=== PATIENT | female | born 1955 | race Caucasian/White ===

== ENCOUNTER → 2019-10-17 | Outpatient (CLI) | payer MEDICARE, SELFPAY ==
[2019-10-17 13:06] VITALS: BMI 39.6
== END | disposition home or self-care (01) ==
LOC: LABSPEC 16:00
PROVIDERS: PCP Internal Medicine; Referring Provider Nurse Practitioner Women's Health; Visit Provider Nurse Practitioner Women's Health
DX: N76.4 Abscess of vulva (principal)
CPT/HCPCS: 87070; 87077; 87186; 87205

== ENCOUNTER → 2021-11-04 | Outpatient (CLI) | payer MEDICARE, SELFPAY ==
[2021-11-08 11:33] LABS: HPV APTIMA, High Risk Negative (Negative)
== END | disposition home or self-care (01) ==
LOC: LABSPEC 10:03
PROVIDERS: PCP Internal Medicine; Visit Provider Obstetrics & Gynecology
DX: N39.46 Mixed incontinence (principal); Z12.4 Encounter for screening for malignant neoplasm of cervix
CPT/HCPCS: 87086; 87088; 87624; 88175; G0145

== ENCOUNTER → 2022-02-25 | Outpatient (CLI) | payer MEDICARE, SELFPAY ==
--- NOTE | 2022-02-25 10:08 | BI_ITS ---
MAMMOGRAPHY - BILATERAL SCREENING REASON FOR EXAM: Female, 66 years old. Routine annual screening examination. PERTINENT HISTORY: Non-contributory. TECHNIQUE: Digital bilateral breast lj (3D mammographic acquisition) in the CC and MLO projections. 2-D mediolateral oblique (MLO) and craniocaudad (CC) views of both breasts were obtained. CAD: Full Field Digital Mammography with Computer Added Detection was performed. COMPARISON: Comparison is made with prior outside examination of 12/16/2020. FINDINGS: Breast Composition: There are scattered areas of fibroglandular density. There are no dominant masses or suspicious calcifications. Stable small benign-appearing bilateral axillary lymph nodes. No other significant abnormalities are identified. There has been no significant change since the prior study. BI/SCRN MAMM (CAD)W/LJ BILAT IMPRESSION: Stable bilateral screening mammogram. Yearly follow-up mammogram recommended. (A) ASSESSMENT CATEGORY: BIRADS Category 2: Benign. A letter regarding these results will be sent to the patient by the facility within 30 days. Approximately 10% of breast cancers are not detected by mammography. A normal mammogram should not delay biopsy of a clinically suspicious abnormality. [id number] Electronically Signed: César Sanchez MD at 11:21 EDT ,
--- NOTE | 2022-02-25 10:14 | BD_ITS ---
STUDY: DUAL ENERGY X-RAY ABSORPTIOMETRY / DXA REASON FOR EXAM: Female, 66 years old. Estrogen deficiency TECHNIQUE: Bone Mineral Density (BMD) measurements of lumbar spine and bilateral hips were obtained. COMPARISON: None. FINDINGS: Lumbar Spine (L1-L4): g/cm2 (0.953) / T-score (-0.9) / Z-score (1.2) Findings are suggestive of normal bone density with a low fracture risk. Left Femur Total: g/cm2 (0.927) / T-score (-0.1) / Z-score (1.3) Left Femoral Neck: g/cm2 (0.746) / T-score (-0.9) / Z-score (0.8) Right Femur Total: g/cm2 (0.923) / T-score (-0.2) / Z-score (1.3) Right Femoral Neck: g/cm2 (0.730) / T-score (-1.1) / Z-score (0.7) BD/Dexa Bone Density Study IMPRESSION: The patient is considered osteopenic as outlined below according to World Michael Organization (WHO) criteria with a low fracture risk. Reference Information: The T-score is the number of standard deviations above or below the standard which is normal for young adults at their peak bone mineral density. The World Health Organization (WHO) interprets the T-scores as follows: Above -1 Normal bone density Between -1 and -2.5 Osteopenia Equal to / or below -2.5 Osteoporosis As a practical clinical guideline, osteopenia may be graded as follows: Mild -1 through -1.5 Moderate -1.6 through -2.0 Severe -2.1 through -2.4 The Z-score is the number of standard deviations above or below age-matched controls. A Z-score of less than -1.5 would be considered abnormal. References: 1. NIH Osteoporosis and Related Bone Diseases www osteo.org 2. International Society for Clinical Densitometry www iscd.org 3. National Osteoporosis Foundation www nof.org Electronically Signed: César Sanchez MD at 12:56 EDT ,
== END | disposition home or self-care (01) ==
PROVIDERS: PCP Internal Medicine; Referring Provider Obstetrics & Gynecology; Visit Provider Obstetrics & Gynecology
DX: Z12.31 Encounter for screening mammogram for malignant neoplasm of breast (principal); E28.39 Other primary ovarian failure; I10 Essential (primary) hypertension; E03.9 Hypothyroidism, unspecified; E78.2 Mixed hyperlipidemia; R10.2 Pelvic and perineal pain; E55.9 Vitamin D deficiency, unspecified
CPT/HCPCS: 36415; 77063; 77067; 77080; 80053; 80061; 81001; 82306; 84443; 85025

== ENCOUNTER → 2022-02-25 | Outpatient (CLI) | payer MEDICARE, SELFPAY ==
[2022-02-25 09:37] LABS: Bacteria 0 SEEN /hpf (None Seen); Mucous, Urine 0 SEEN /hpf (<or=2+); Red Blood Cells-Urine 0 SEEN /hpf (0-5)
[2022-02-25 12:28] LABS: Color, Urine Yellow (Yellow); Glucose, Dipstick Normal (Normal); Ketone-Dipstick Negative (Negative); Leukocyte Esterase-Dipstick 100 /ul (Negative); Nitrite-Dipstick Negative (Negative); Occult Blood-Urine Negative /ul (Negative); Protein-Dipstick Negative (Negative); Urine Bilirubin Dipstick Negative (Negative); Urine Clarity Sl. Cloudy (Clear); Urine Urobilinogen Normal (Normal)
[2022-02-25 12:29] LABS: Absolute Lymphocyte Count 1.88 X10^3/uL (0.83-4.51); Basophil# 0.04 X10^3/uL; Basophil% 0.6 % (0-1); Eosinophils% 1.5 % (0-5); Hematocrit 43.9 % (37-47); Hemoglobin 14.5 g/dL (12.0-15.0); Lymphocyte # 1.88 X10^3/ul (0.83-4.51); Lymphocyte % 27.9 % (19-41); Mean Corpuscular Hgb 29.2 pg (27.0-32.0); Mean Corpuscular Volume 88.5 fL (81-99); Mean Platelet Vol. 10.4 fl (6.2-12.0); Monocyte# 0.69 X10^3/uL; Monocyte% 10.2 % (0-10); NRBC Flagged by Analyzer 0 % (0-5); Neutrophil # 4.01 X10^3/uL (2.7-7.7); Neutrophil % 59.4 % (47-70); Platelet Count 230 K/mm3 (150-450); RBC Distribution Width CV 12.8 % (11.6-14.6); RBC Distribution Width SD 41.6 fl (35.1-43.9); Red Blood Count 4.96 M/mm3 (4.2-5.4); White Blood Count 6.8 K/mm3 (4.4-11.0)
[2022-02-25 12:40] LABS: Squamous Epithelial Cells - UA 0-5 SEEN /hpf (5-10); White Blood Cells 10-25 SEEN /hpf (0-5)
[2022-02-25 12:54] LABS: ALB/GLOB Ratio 1.1 RATIO (0.9-2.4); AST(SGOT) 20 U/L (15-37); Alanine Aminotransfer ALT/SGPT 25 U/L (13-56); Albumin, Serum 3.8 g/dL (3.2-5.0); Alkaline Phosphatase 112 U/L (45-117); Anion Gap 8 (5-15); BUN 15 mg/dL (7-18); BUN/Creat Ratio 17.4 RATIO (10-20); Calcium,Total 9.7 mg/dL (8.5-10.1); Chloride 104 mmol/L (98-107); Cholesterol 171 mg/dL (200); Creatinine, Serum 0.86 mg/dL (0.55-1.02); EST Glomerular Filtration Rate 70 mL/min (>60); Est Glom Filt Rate - Afr Amer 84 mL/min (>60); Globulin 3.4 g/dL (2.2-4.2); Glucose 100 mg/dL (74-106); High Density Lipoprotein 58 mg/dL; Potassium 4.1 mmol/L (3.5-5.1); Protein, Total 7.2 g/dL (6.4-8.2); Sodium Level 142 mmol/L (136-145); Thyroid Stim Hormone (TSH) < 0.01 uIU/mL (0.358-3.74); Triglycerides 178 mg/dL; Very Low Density Lipoprotein 36 mg/dL (5-40)
== END | disposition home or self-care (01) ==
LOC: BIMLAB 09:35
PROVIDERS: PCP Internal Medicine; Referring Provider Internal Medicine; Visit Provider Internal Medicine
DX: I10 Essential (primary) hypertension (principal); E03.9 Hypothyroidism, unspecified; E78.2 Mixed hyperlipidemia; R10.2 Pelvic and perineal pain; E55.9 Vitamin D deficiency, unspecified
CPT/HCPCS: 36415; 80053; 80061; 81001; 82306; 84443; 85025

== ENCOUNTER → 2022-04-16 | Outpatient (CLI) | payer MEDICARE, SELFPAY ==
[2022-04-16 12:45] LABS: Thyroid Stim Hormone (TSH) 0.02 uIU/mL (0.358-3.74)
== END | disposition home or self-care (01) ==
LOC: BIMLAB 11:10
PROVIDERS: PCP Internal Medicine; Referring Provider Internal Medicine; Visit Provider Internal Medicine
DX: E03.9 Hypothyroidism, unspecified (principal)
CPT/HCPCS: 36415; 84443

== ENCOUNTER 2022-06-23 05:53 | Day surgery (SDC) | payer MEDICARE, SELFPAY ==
--- NOTE | 2022-06-18 10:58 | EKG12_ITS ---
Test Reason : PREOP Blood Pressure : / mmHG Vent. Rate : 063 BPM Atrial Rate : 063 BPM P-R Int : 182 ms QRS Dur : 082 ms QT Int : 392 ms P-R-T Axes : 008 -16 008 degrees QTc Int : 401 ms Normal sinus rhythm Inferior infarct , age undetermined Abnormal ECG Confirmed by ROSELIA PARRISH, ARMANI ([id number]), pictures editor KWASI MUNIZ ([id number]) on 06/19/2022 7:08:02 AM Referred By: VINNY Confirmed By:NEELA VELOZ MD
[2022-06-18 13:06] LABS: Hematocrit 43.9 % (37-47); Hemoglobin 14.5 g/dL (12.0-15.0); Mean Corpuscular Hgb 28.8 pg (27.0-32.0); Mean Corpuscular Volume 87.1 fL (81-99); Mean Platelet Vol. 10.8 fl (6.2-12.0); Platelet Count 203 K/mm3 (150-450); RBC Distribution Width CV 13.5 % (11.6-14.6); Red Blood Count 5.04 M/mm3 (4.2-5.4); White Blood Count 5.8 K/mm3 (4.4-11.0)
[2022-06-18 13:47] LABS: Anion Gap 6 (5-15); BUN 20 mg/dL (7-18); BUN/Creat Ratio 21.9 RATIO (10-20); Calcium,Total 9.6 mg/dL (8.5-10.1); Chloride 107 mmol/L (98-107); Creatinine, Serum 0.91 mg/dL (0.55-1.02); EST Glomerular Filtration Rate 65 mL/min (>60); Est Glom Filt Rate - Afr Amer 79 mL/min (>60); Glucose 88 mg/dL (74-106); Potassium 3.5 mmol/L (3.5-5.1); Sodium Level 141 mmol/L (136-145); Thyroid Stim Hormone (TSH) 0.01 uIU/mL (0.358-3.74)
[2022-06-23] VITALS (18 sets, daily range): BP systolic 99–151; BP diastolic 56–93; PULSE 57–81; RESP 15–21; TEMP 35.9–37.1; O2SAT 84–97; BMI 39.8
[2022-06-23] MEDS: Lactated Ringers 1,000 ML 15 ML IV ×3 (06:34→09:29)
--- NOTE | 2022-06-23 07:20 | PCM.HP.STD ---
HPI - General HPI Narrative LANI SHAH, is a 67 F who presents for hernia repair. This is been there for about a year and it is growing larger and more bothersome. She denies nausea vomiting or fevers or chills. FORMERLY [facility] Medical History (Updated 06/16/22 @ 08:28 by Janna Granados) Alcohol use Anxiety Arthritis Back pain Chronic cough CPAP (continuous positive airway pressure) dependence Dizziness Gastric reflux Hearing loss History of back problems History of hiatal hernia History of pain when walking History of steroid therapy History of stress test Hx of essential hypertension Hx of gastroesophageal reflux (GERD) Hx of hyperlipidemia Hx of migraines Hx of seasonal allergies Hx of thyroid disease Hx: UTI (urinary tract infection) Hypertension Injury of head and neck Kidney stones Leg cramps Non-smoker Personal history of kidney stones Post-menopausal Shortness of breath on exertion Sleep apnea Thyroid disease Wears glasses Wears hearing aid Home Medications atorvastatin 20 mg tablet (Lipitor) 20 mg PO DAILY 10/17/19 [History Last Taken Unknown] cholecalciferol (vitamin D3) 25 mcg (1,000 unit) capsule 25 mcg PO DAILY 10/17/19 [History Last Taken Unknown] flaxseed oil 1,000 mg capsule ([place]-3 Flaxseed Oil) 1,000 mg PO DAILY 10/17/19 [History Last Taken Unknown] lisinopril 20 mg-hydrochlorothiazide 12.5 mg tablet 1 tab PO DAILY 10/17/19 [History Last Taken Unknown] omeprazole 20 mg capsule,delayed release 20 mg PO DAILY 10/17/19 [History Last Taken Unknown] paroxetine HCl 20 mg tablet (Paxil) 40 mg PO DAILY 10/17/19 [History Last Taken Unknown] coenzyme Q10 100 mg capsule (Co Q-10) 100 mg PO DAILY 02/25/22 [History Last Taken Unknown] ibuprofen 200 mg tablet 400 mg PO Q6H PRN Pain 02/25/22 [History Last Taken Unknown] propranolol 10 mg tablet 10 mg PO TID 02/25/22 [History Last Taken 06/23/22 04:30] hydrocortisone 2.5 % topical ointment 1 applic topical DAILY PRN rash #20 grams 04/16/22 [Rx Last Taken Unknown] levothyroxine 137 mcg tablet 137 mcg PO DAILY #30 tabs 05/25/22 [Rx Last Taken 06/23/22 04:30] meloxicam 7.5 mg tablet 7.5 mg PO DAILY #30 tabs 05/25/22 [Rx Last Taken Unknown] Allergy/AdvReac Type Severity Reaction Status Date / Time acetaminophen [Vicodin] AdvReac Unknown makes Verified 06/23/22 06:30 patient not feel well hydrocodone [Vicodin] AdvReac Unknown makes Verified 06/23/22 06:30 patient not feel well oxycodone AdvReac Unknown Makes Verified 06/23/22 06:30 patient not feel well Family History Mother Anxiety Melanoma Depression Hypertension CVA (cerebral vascular accident) Father Kidney disease Myocardial infarction Hypertension Surgical History Cyst of skin H/O dilation and curettage H/O LEEP History of colonoscopy (~2017) History of hernia surgery History of tonsillectomy and adenoidectomy S/P foot surgery, left [place] teeth extracted Social History household members: spouse housing: house number of children: 3 current occupational status: retired current occupation: [employer] sexually active: Yes Smoking Status: Never smoker Electronic Cigarette Use: not used alcohol intake: current alcohol intake frequency: holidays/special occasions only substance use type: does not use what type of physical activity do you participate in: none seatbelt use: always do you feel safe at home: Yes additional social history: [employer] Retired Principal [employer] Constitutional Constitutional: Denies anorexia or fatigue Eyes Eyes: Denies blurry vision ENT HEENT: Denies abnormal hearing Cardiovascular Cardiovascular: Denies chest pain Respiratory/Chest Respiratory/Chest: Denies cough or dyspnea Gastrointestinal Gastrointestinal: Reports abdominal pain; Denies constipation, diarrhea, nausea or vomiting Musculoskeletal Musculoskeletal: Denies abnormal gait Integumentary Integumentary: Denies jaundice or new lesions Neurologic Neurologic: Denies abnormal gait or dizziness Psychiatric Psychiatric: Denies anxiety Endocrine Endocrinology: Denies flushing Hematologic/Lymphatic Hematologic/Lymphatic: Denies easy bleeding Vital Signs Vital Signs Vital Signs: 06/23/22 06:30 06/23/22 06:30 Temperature 96.7 F L Temperature Source Temporal Pulse Rate 81 Respiratory Rate 18 Respiratory Pattern Normal Blood Pressure 140/82 H Blood Pressure Mean 101 Blood Pressure Source Monitor Blood Pressure Position Sitting Blood Pressure Location Right Arm Pulse Ox 95 Oxygen Delivery Method Room Air Weight Weight: 246 lb 14.684 oz Body Mass Index (BMI) 39.8 Physical Exam Const oriented x3 Resp normal respiratory effort Cardio regular rate and regular rhythm GI soft to palpation and non-tender GI Narrative: Reducible umbilical hernia Results Lab / Micro Data Result Diagrams: 06/18/22 11:18 06/18/22 11:18 Assessment & Plan Assessment/Plan (1) Umbilical hernia: QUALIFIERS: Obstruction and gangrene presence: without obstruction or gangrene Qualified Code(s): K42.9 - Umbilical hernia without obstruction or gangrene PLAN: Patient has a number local hernia which is growing larger.? She would like this repaired.? I discussed umbilical hernia repair with mesh in detail with the patient.? I discussed the procedure as well as the risks including but not limited to bleeding, infection, injury to underlying organs, mesh placement.? Patient understands the risks and is when to proceed with umbilical hernia repair.? Postoperative care was discussed as well. Fernando Ervin MD Pager: [facility] [address] [place] [address], [address] [place] [address] Office:
[2022-06-23] MEDS: Cefazolin 2 GM in 0.9% Normal Saline 100 ML IV (07:24)
[2022-06-23] MEDS: Bupiv/Epi 0.5% Mpf 30 ML Vial (07:41)
--- NOTE | 2022-06-23 08:15 | PCM.OPRPT ---
Report of Operation Date of Procedure: 06/23/22 Pre-Operative Diagnosis: Umbilical hernia Post-Operative Diagnosis: Umbilical hernia Surgery/Procedure Performed:: Umbilical hernia repair with mesh Description of Procedure: Patient was brought back to the operating room and general anesthesia was induced. The abdomen was prepped and draped in usual sterile fashion. An incision was marked superior to the umbilicus and then injected with local anesthetic. Scalpel was used to make an incision. The umbilical stalk was taken off of the hernia sac using electrocautery. The hernia was dissected free from its lateral attachments using electrocautery. The fascia was then elevated and the preperitoneal plane was developed and the hernia sac was reduced. Next a medium Ventralex ST mesh was placed in the preperitoneal space and sutured to the anterior fascia using 0 PDS suture. Next the area was irrigated and suctioned dry and the fascia was reapproximated using interrupted 0 Nurolon sutures. Subcutaneous tissue was irrigated and then the umbilical stalk was tacked to the fascia using 3-0 Vicryl suture. The incision was closed with interrupted 3-0 Vicryl suture in a running 4-0 Monocryl suture. Steri-Strips and bandages were applied and the patient was awoken and taken to PACU in stable condition and tolerated the procedure well. Grafts/Implants Used: Medium Ventralex ST mesh Admit VTE Documentation VTE Mechan Device Prophylaxis: SCD's
--- NOTE | 2022-06-23 08:22 | DCINST_ITS ---
Discharge Instructions Procedure Hernia Diet Discharge Diet: Light diet - advance as tolerated Activity Discharge Activity: May Not Drive (for 2-3 days or while taking narcotic pain meds.) and May Shower (with the bandage in place 1-2 days after surgery.) Lifting Restrictions: 20 pounds for 6 weeks. Additional Activity Instructions:: Climbing stairs is fine, walking is encouraged. Sitting in bed may be uncomfortable. Sitting up using your lateral muscles (sitting up sideways) is usually more comfortable. Do not drive, work heavy equipment of sign legal documents for 24 hours. Pain medications may cause nausea, you should typically eat light foods as you take your pain medications. Pain medications may also cause constipation. If you have difficulty with this, discuss with your doctor. Dressing / Incision Call your doctor if your incision/area has: Continuous Slow Oozing, Sudden Increased Bleeding, Increased Pain/ Swelling, Increased Redness and Foul Smelling Discharge Call your doctor if you observe: Fever of 101 or Higher Suture Line Care: Avoid Pulling/Pushing and Avoid Pinching/Bending Remove Dressing in: 2 days (Remove clear bandages in 2 days, remove Steri-Strips in 7 to 10 days.) Cleanse incision/area with: Soap & Water Follow Up Care Please Follow Up With: Fernando Ervin MD When: Please call to schedule 2 week follow up appointment. [phone] Test Results: Test results from this visit will be discussed in further detail at your follow- up appointment, if applicable. Discharge Plan Admission Attending Provider: Fernando Ervin Primary Care Provider: Elicia Rojas Instructions Additional Instructions / Restrictions: Ibuprofen and Tylenol for pain. Oxycodone as needed for breakthrough Discharge Orders/Prescriptions Prescriptions: New oxycodone 5 mg tablet 5 - 10 mg PO Q6H PRN (Reason: pain) 5 Days Qty: 20 0RF No Action omeprazole 20 mg capsule,delayed release(DR/EC) 20 mg PO DAILY atorvastatin [Lipitor] 20 mg tablet 20 mg PO DAILY lisinopril-hydrochlorothiazide 20-12.5 mg tablet 1 tab PO DAILY paroxetine HCl [Paxil] 20 mg tablet 40 mg PO DAILY cholecalciferol (vitamin D3) 25 mcg (1,000 unit) capsule 25 mcg PO DAILY flaxseed oil [[place]-3 Flaxseed Oil] 1,000 mg capsule 1,000 mg PO DAILY Rx Instructions: administer with a meal propranolol 10 mg tablet 10 mg PO TID coenzyme Q10 [Co Q-10] 100 mg capsule 100 mg PO DAILY ibuprofen 200 mg tablet 400 mg PO Q6H PRN (Reason: Pain) hydrocortisone 2.5 % ointment 1 applic topical DAILY PRN (Reason: rash) Qty: 20 0RF meloxicam 7.5 mg tablet 7.5 mg PO DAILY Qty: 30 5RF levothyroxine 137 mcg tablet 137 mcg PO DAILY Qty: 30 1RF Referrals / Follow Up: Elicia Rojas MD [Primary Care Provider] - Disposition Disposition (needs filled in before D/C Order can be placed): Home, Self Care
[2022-06-23] MEDS: Ipratropium/Albuterol Sulfate 3 ML AMPUL.NEB INHALATION (11:38)
--- NOTE | 2022-06-23 13:08 | SUR.PHASEII ---
PT SENT HOME WITH INCENTIVE SPIROMETER WHICH WAS GIVEN IN PACU, THIS NURSE REINFORCED EDUCATION ABOUT THE DEVICE, PT VERBALIZES UNDERSTANDING. PT MEETS D/C CRITERIA, PT D/C TO HOME.
== END 2022-06-23 13:10 | disposition home or self-care (01) ==
LOC: SDC 05:54 → AC 05:54
PROVIDERS: Anesthesiology; PCP Internal Medicine; Referring Provider Surgery; Visit Provider Surgery
PROC: (CPT 49591; principal; 2022-06-23 07:15)
DX: K42.9 Umbilical hernia without obstruction or gangrene (principal); E78.00 Pure hypercholesterolemia, unspecified; I10 Essential (primary) hypertension; E03.9 Hypothyroidism, unspecified; Z79.899 Other long term (current) drug therapy
CPT/HCPCS: 49591; 36415; 80048; 84443; 85027; 93005; 94640; C1781; J7120; J2405

== ENCOUNTER → 2022-10-14 | Outpatient (CLI) | payer MEDICARE, SELFPAY ==
[2022-10-14 12:47] LABS: Thyroid Stim Hormone (TSH) 0.02 uIU/mL (0.358-3.74)
== END | disposition home or self-care (01) ==
LOC: BIMLAB 10:58
PROVIDERS: PCP Internal Medicine; Referring Provider Internal Medicine; Visit Provider Internal Medicine
DX: E03.9 Hypothyroidism, unspecified (principal)
CPT/HCPCS: 36415; 84443

== ENCOUNTER → 2022-12-09 | Outpatient (CLI) | payer MEDICARE, SELFPAY ==
[2022-12-09 15:43] LABS: Absolute Lymphocyte Count 1.75 X10^3/uL (0.83-4.51); Absolute Neutrophil Count 3.8 X10^3/uL (2.0-7.7); Basophil# 0.04 X10^3/uL; Basophil% 0.6 % (0-1); Eosinophil# 0.15 X10^3/uL; Eosinophils% 2.3 % (0-5); Hematocrit 44.4 % (37-47); Hemoglobin 14.7 g/dL (12.0-15.0); Lymphocyte # 1.75 X10^3/ul (0.83-4.51); Lymphocyte % 27.4 % (19-41); Mean Corp Hgb Conc 33.1 g/dL (32-36); Mean Corpuscular Hgb 29.3 pg (27.0-32.0); Mean Corpuscular Volume 88.6 fL (81-99); Mean Platelet Vol. 10.1 fl (6.2-12.0); Monocyte# 0.66 X10^3/uL; Monocyte% 10.3 % (0-10); NRBC Flagged by Analyzer 0 % (0-5); Neutrophil # 3.77 X10^3/uL (2.7-7.7); Neutrophil % 59.1 % (47-70); Platelet Count 235 K/mm3 (150-450); RBC Distribution Width SD 42.2 fl (35.1-43.9); Red Blood Count 5.01 M/mm3 (4.2-5.4); White Blood Count 6.4 K/mm3 (4.4-11.0)
[2022-12-09 16:53] LABS: AST(SGOT) 22 U/L (15-37); Alanine Aminotransfer ALT/SGPT 24 U/L (13-56); Albumin, Serum 3.6 g/dL (3.2-5.0); Alkaline Phosphatase 119 U/L (45-117); Anion Gap 4 (5-15); BUN 15 mg/dL (7-18); BUN/Creat Ratio 15.6 RATIO (10-20); Calcium,Total 9.2 mg/dL (8.5-10.1); Chloride 110 mmol/L (98-107); Creatinine, Serum 0.96 mg/dL (0.55-1.02); EST Glomerular Filtration Rate 61 mL/min (>60); Est Glom Filt Rate - Afr Amer 74 mL/min (>60); Globulin 3.6 g/dL (2.2-4.2); Glucose 78 mg/dL (74-106); Potassium 3.4 mmol/L (3.5-5.1); Protein, Total 7.2 g/dL (6.4-8.2); Rheumatoid Factor < 10.0 IU/mL (<15); Sodium Level 143 mmol/L (136-145); Thyroid Stim Hormone (TSH) 0.03 uIU/mL (0.358-3.74)
[2022-12-09 17:48] LABS: Vitamin D,25 Hydroxy 38.3 ng/mL
[2022-12-11 12:09] LABS: CCP IgG Antibodies 5 units (0-19)
== END | disposition home or self-care (01) ==
LOC: BIMLAB 14:38
PROVIDERS: PCP Internal Medicine; Referring Provider Internal Medicine; Visit Provider Internal Medicine
DX: M25.50 Pain in unspecified joint (principal); M85.80 Other specified disorders of bone density and structure, unspecified site; I10 Essential (primary) hypertension
CPT/HCPCS: 36415; 80053; 82306; 84443; 85025; 86038; 86200; 86225; 86235; 86431

== ENCOUNTER → 2022-12-28 | Outpatient (CLI) | payer MEDICARE, SELFPAY ==
--- NOTE | 2022-12-28 15:06 | CT_ITS ---
STUDY: CT ABDOMEN AND PELVIS WITH CONTRAST - URINARY TRACT REASON FOR EXAM: Female, 67 years old. Chronic pain (umbilical pain times many months; diarrhea/constipation) RADIATION DOSAGE (If Supplied By Facility): CTDIvol = ( 23.19 ) mGy, DLP = ( 1642.54 ) mGycm TECHNIQUE: Oral and amp; IV Readi-CAT and amp; 100mL Isovue-370 was administered. Transaxial images were obtained from the dome of the diaphragm to the symphysis pubis in the arterial, nephrographic and excretory phases. Multiplanar coronal and sagittal images were reformatted. Individualized Dose Optimization Techniques Were Used For This CT. COMPARISON: None FINDINGS: The visualized lung bases are unremarkable. The visualized portions of the heart are within normal limits. Normal liver. The patent portal vein diameter is 1.5 cm. A cluster of 1-2 mm calcified stones are seen dependently in the neck of the gallbladder. No associated thickening of the gallbladder wall nor pericholecystic fluid. No biliary ductal dilatation. Normal spleen. Incidental note of calcified 1 cm splenic artery aneurysm. Normal pancreas. Normal bilateral adrenal glands. Normal visualized stomach. Normal small intestine. Normal colon. The appendix is visualized and appears normal. Normal abdominal aorta. No retroperitoneal adenopathy. 1.25 cm exophytic, subcapsular hypodense cyst seen at the anterior midpole of the right kidney. Normal left kidney. No hydronephrosis. Normal urinary bladder. Visualize uterus and adnexa are unremarkable for the patient''s age. Normal abdominal wall. Degenerative endplate spurring seen in the lower thoracic spine and upper lumbar levels. Degenerative facet arthropathies are noted at L4-5 and L5-S1. There is degenerative narrowing in the left hip joint with subarticular sclerosis and cystic degeneration in the left femoral head. CT/Abdomen/Pelvis WITH Contrast IMPRESSION: 1. No CT findings to clearly correlate with the patient''s presenting symptoms. 2. A cluster of 1-2 mm stones are seen in the gallbladder. No sign of cholecystitis or bile duct obstruction. 3. Small cyst at the anterior midpole of the right kidney. No hydronephrosis. 4. Degenerative changes of the spine and left hip. Electronically Signed: Yon Vazquez MD at 7:53 EDT Reading Location ID and State: [id number] / Unknown , Service support ,
== END | disposition home or self-care (01) ==
LOC: CT 15:05
PROVIDERS: PCP Internal Medicine; Referring Provider Internal Medicine; Visit Provider Internal Medicine
DX: R10.33 Periumbilical pain (principal)
CPT/HCPCS: 74177; Q9967

== ENCOUNTER 2023-01-11 12:00 | Outpatient (RCR) | payer MEDICARE, SELFPAY ==
--- NOTE | 2022-11-16 15:54 | HP.PTEVAL ---
Patient's Visit Information LANI SHAH is a 67 year old F referred to Physical Therapy by Dr. Elicia Rojas MD with a diagnosis of dizzyness. Date of Evaluation: 11/16/22 Physical Therapist: Daniel Leary DPT, OCS, CSCS - Visit Plan Frequency: 1x/Week Duration: 4-6 Weeks Plan: weekly x 4-6 as helpful for... 1. VOR progression and habituation ex as needed. 2. Balance exercise progression VOR and ec/foam to HEP. - Subjective Had been extremely dizzy for a week or so. I have had dizzy(lightheaded for years intermittently) used to use hand on wall for stability. Saw doctor last week and doctor thought balance was off. Found out later she had strep at that time. Was put on antibiotics which helped the strep and dizzyness is back to baseline. Saw doctor a month ago. Back to normal for the last month or so. No spinning. Feels lightheaded intermittently standing and sometimes sitting. Unsteady often and all the time when standing. No falls lately. 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 feet always icecold. Sleep is not great but not due to dizzyness. Worse last year or two. Retired. Spends day chasing grandkids and has to help her balance at times. Will walk with and sometimes veers suddenly. No cane or walker. walks slowly. No regular exercise. Hobbies: gardening but cannot b/c bedning down makes her dizzy until she comes back up. Sewing and can do that. Basic ADL: getting done I. - Objective Walks with mildly wide SAMIA but I on firm flat surface. Transfers with UE I. Steps reciprocal with one rail but slow. cervical aROM ext 25 and rotations 50. UE AROM WFL and strength 4-. Sensation UE WNL to gross light touch. - B hallpike christy but slightly more dizzy R. - roll test. Used matthew today R then slightly better. VOR walking very challenging for patient today and veers R. Oculomotor: no nystagmus with gaze or head shake. - ocular tilt. - skew eye deviation. - head thrust. pursuit normal. saccades normal, no synmptoms. VOR 30 seconds gives mild dizzy for 5 seconds H. recovers qucikly. Most notable today is VOR walking, foam stance, ec stance and VOR gives symptoms as does bending over quickly. - Balance/Special Test Scores Functional Gait Assessment Score: 23 % Disability: 23.3400 CATSIB Score (Max score 120 seconds): 78 Dizziness Score: 46 - Goals Goal 1:: Pt feel 50% better in overall dizzy/lightheaded. Goal Time Frame: 4-6 Weeks Goal 2:: I appropriate management of condition with HEP to minimzie symptoms and max balance Goal Time Frame: 4-6 Weeks Goal 3:: DHI 10 or less Goal Time Frame: 4-6 Weeks Goal 4:: Walk at home and community without holding . Goal Time Frame: 4-6 Weeks - Rehabilitation Potential Physical Therapy Diagnosis: dizzyness in the form of lightheadedness and unsteadiness. Rehabilitation Potential: Questionable - Anticipated Interventions Patient/Client Instruction: Educate patient on: Condition, Plan of Care For the Purpose of:: To increase tolerance to activity/condition/position, To improve gait and locomotor functions, To improve safety Therapeutic Exercise to Include: Balance training Comment: adaptationa dn habituation ex. For the Purpose of:: To increase tolerance to activity/condition/position, To improve gait and locomotor functions, To improve safety Thank you for the opportunity to evaluate your patient. For Medicare and Medicare HMO plans, please review the plan of care and approve it. It will need to be FAXED BACK to us at [phone] for Medicare purposes. For Medicare only, by signing this I certify the plan of care. Please let me know if there are questions or concerns regarding this plan of care. Physician Signature: Date:
--- NOTE | 2022-12-16 12:00 | HP.PTREVAL_ITS ---
Re-Evaluation Intro: Dr. Elicia Rojas MD, It has been my pleasure to treat LANI SHAH over the last 4 visits for dizzyness. Please see the progress note below for an update on the physical therapy plan of care! Subjective Subjective: Odd feeling in head is becoming normal for her. Exercises make it occur but no spinning dizzyness. May have hip CARIDAD in January. Reposititoning self on couch can cause it. Lying down adn sitting up are OK. Getting up then can sometimes cause it. No f/u scheduled with doctor. Objective Objective/Function: FGA same as last and +3 from IE. No pattern noticed to funny feeling in head lasting short durations and happened just ambulating in quiet environment and no head movements today. Plan Plan Plan: [employer] balance test then ex prescription weight shift and per test results. Balance/Gait/Functional tests Balance/Special Test Scores Functional Gait Assessment Score: 26 % Disability: 13.3400 CATSIB Score (Max score 120 seconds): 78 Dizziness Score: 38 Goals Goals Goal 1:: Pt feel 50% better in overall dizzy/lightheaded. Goal Time Frame: 4-6 Weeks Goal Progress: Goal Met Goal 2:: I appropriate management of condition with HEP to minimzie symptoms and max balance Goal Time Frame: 4-6 Weeks Goal Progress: Goal Met Goal 3:: DHI 10 or less Goal Time Frame: 4-6 Weeks Goal Progress: Progressing Goal 4:: Walk at home and community without holding . Goal Time Frame: 4-6 Weeks Goal Progress: Goal Met Anticipated Interventions Anticipated Interventions Patient/Client Instruction: Educate patient on: Condition and Plan of Care For the Purpose of:: To increase tolerance to activity/condition/position, To improve gait and locomotor functions and To improve safety Therapeutic Exercise to Include: Balance training Comment: adaptationa dn habituation ex. For the Purpose of:: To increase tolerance to activity/condition/position, To improve gait and locomotor functions and To improve safety Re-Evaluation Ending Re-evaluation ending: Please do not hesitate to contact me at [phone] by phone or if you have questions or concerns regarding this new plan of care! Sincerely, Daniel Leary, DPT, OCS, CSCS
--- NOTE | 2022-12-25 14:37 | HP.PTREVAL ---
Re-Evaluation Intro: Dr. Elicia Rojas MD, It has been my pleasure to treat LANI SHAH over the last 5 visits for dizzyness. Please see the progress note below for an update on the physical therapy plan of care! Subjective Subjective: Dizzyness has not been bad. One time it was bad it was getting darker. It felt imbalance, slight lightheadedness at times, no spinning. Cannot relate it to head movement. Had catscan Wednesday of pelvis. Will see Dr. Rojas next week. Exercises are OK and do not cause many symptoms. Objective Objective/Function: FRA: 2.6 SD from norm CTSIB results: 3 LOB ec foam surface corrected by PT, composite score with poorest results ec on firm surface and ec on foam LOS testin LOB BW, poor posterior weight shifts and harder to shift weight R. COG seems displaced FW at baseline. New goal and fair prognosis with time and compliance. Other goals still appropriate. Plan Plan Plan: 2x/week x 2-4 weeks to work on balance deficits: focus posterior weight shift, weight shift funcitonally, foam ec exercises/ vestibular balance ex as safety allows and progress to HEP CARMEN[place]A. Balance/Gait/Functional tests Balance/Special Test Scores Functional Gait Assessment Score: 26 % Disability: 13.3400 CATSIB Score (Max score 120 seconds): 78 Dizziness Score: 38 Goals Goals Goal 1:: Pt feel 50% better in overall dizzy/lightheaded. Goal Time Frame: 4-6 Weeks Goal Progress: Goal Met Goal 2:: I appropriate management of condition with HEP to minimzie symptoms and max balance Goal Time Frame: 4-6 Weeks Goal Progress: Progressing Goal 3:: DHI 10 or less Goal Time Frame: 4-6 Weeks Goal Progress: Progressing Goal 4:: Walk at home and community without holding . Goal Time Frame: 4-6 Weeks Goal Progress: Goal Met Goal 5:: I appropriate HEP to addres balance deficits on testing...posterior weight shift and vestibular foam/ec challenges. Goal Time Frame: 2-4 Weeks Anticipated Interventions Anticipated Interventions Patient/Client Instruction: Educate patient on: Condition and Plan of Care For the Purpose of:: To increase tolerance to activity/condition/position, To improve gait and locomotor functions and To improve safety Therapeutic Exercise to Include: Balance training Comment: adaptationa dn habituation ex. For the Purpose of:: To increase tolerance to activity/condition/position, To improve gait and locomotor functions and To improve safety Re-Evaluation Ending Re-evaluation ending: Please do not hesitate to contact me at [phone] by phone or if you have questions or concerns regarding this new plan of care! Sincerely, Daniel Leary, DPT, OCS, CSCS
--- NOTE | 2022-12-25 14:37 | HP.PTCOM ---
PT Communication Note 12/25/[address] Elicia Rojas MD , Thank you for the referral of Donna to [facility] for balance assessment. i have enclosed a copy of the results for your review. In summation, she scored poorly on the fall risk assessment and these results and safety were reviewed with her. She score low on the vestibular portion of the Mod CTSIB test and both trials with eyes closed. She score poorly in the posterior weight shifting on the Limits of stability test. She also seem to have a predispensation to hold her baseling center of gravity forward. With these results in mind, I plan to see her 2x/week for 2 more weeks to work toward a final HEP for these balance deificats as safety allows. I should note that her dizzyness feeling is much better but some lightheadedness that I cannot attribute to vestibular persists. Please contact me if there are any questions regarding her therapy. Sincerely, Daniel Leary DPT, OCS, CSCS Contact Information
--- NOTE | 2023-01-11 12:29 | HP.PTDCSUM_ITS ---
Discharge Summary D/C summary: It has been my pleasure to treat LANI SHAH referred by Dr. Elicia Rojas MD, with the diagnosis of dizzyness for a total of 10 visit(s). Discharge Date: 01/11/23 Please see the following information for a summary of their discharge status. Subjective Subjective: Will have CARIDAD in mid January. Able to do all exercises for balance, dizzy except some bending ones. I think exercises are heping a little bit. Knowing balance is abut where it should be is helpful. Goofy feeling and dizzyness pop up whenever and are maybe45% better. Shortynacrox is doing better although limited due to hip, has to be careful upons standing. Hip limits her. Hard to pull upright due to hip. Hangs on to by habit but can go without doing so. Pain L hip: Pain Intensity (Out of 10): Unrated Overall Improvement % Improvement: 45 Objective Objective/Function: No spinning. funny feeling in head is intermittent and not e effected by head position changes or VOR. Balance is improving FGA. Goals Goal 1:: Pt feel 50% better in overall dizzy/lightheaded. Goal Progress: Goal Met Goal 2:: I appropriate management of condition with HEP to minimzie symptoms and max balance Goal Progress: Goal Met Goal 3:: DHI 10 or less Goal Progress: Progressing Goal 4:: Walk at home and community without holding . Goal Progress: Goal Met Goal 5:: I appropriate HEP to addres balance deficits on testing...posterior weight shift and vestibular foam/ec challenges. Goal Progress: Goal Met Plan Plan: d/c, pt to check [facility] doctor if goofy feeling in head is problematic or worsens. D/C Information Discharge Comments: Balance improved as expected adn no dizzyness lately but still gets intermittent and unpredictable goofy feeling in head which is annoying but nt overly limiting. Pt to check with doctor on this feeling. d/c sentence: If there are questions or concerns regarding this patient's physical therapy, please feel free to call me at [phone]. Thank you for the referral of this patient. Sincerely, Daniel Leary, DPT, OCS, CSCS Balance/Gait/Functional tests Balance/Special Test Scores Functional Gait Assessment Score: 27 % Disability: 10.0000 CATSIB Score (Max score 120 seconds): 78 Dizziness Score: 28
== END 2023-01-11 12:40 | disposition home or self-care (01) ==
LOC: PT 12:00
PROVIDERS: PCP Internal Medicine; Referring Provider Internal Medicine; Visit Provider Internal Medicine
DX: R42 Dizziness and giddiness (principal)
CPT/HCPCS: 97110; 97161; 97164; 97530; 97750

== ENCOUNTER → 2023-01-21 | Outpatient (CLI) | payer MEDICARE, SELFPAY ==
--- NOTE | 2023-01-24 16:47 | STRESSREP_ITS ---
Stress Test Report Date: 01/21/2023 Procedure: Pharmacologic stress nuclear imaging study Indications: Preoperative evaluation Consent: Per the patient Procedure: The patient underwent pharmacologic (Regadenoson) evaluation with a peak heart rate of 100 beats per minute (66%predicted maximal heart rate) and a peak blood pressure of 138/80 mmHg. The baseline ECG demonstrated normal sinus rhythm. EKG during lexiscan infusion revealed no significant ischemic changes. EKG post infusion revealed no significant ischemic changes [There were no cardiac dysrhythmias pretest, during pharmacologic infusion, or recovery]. [There was no complaint of chest discomfort during pharmacologic infusion or recovery]. The examination was discontinued secondary to completion of protocol. Impression: 1. Lexiscan stress test test is negative for Lexiscan infusion induced EKG changes of ischemia. 2. Lexiscan stress test test is negative for Lexiscan infusion induced chest pain. 3. Results of the nuclear portion of the test is as below Myocardial perfusion imaging study: Technique: The patient was injected with 14.8 millicuries of technetium 99m Cardiolite and subsequently rest SPECT Cardiolite nuclear imaging was obtained in the horizontal long, vertical long, and short axis views. The patient underwent pharmacologic [Regadenoson 0.4mg] evaluation. Please see above for details. The patient was injected with 44.3 millicuries of technetium 99m Cardiolite and subsequently stress SPECT Cardiolite nuclear imaging was obtained in the h orizontal long, vertical long, and short axis views. A gated Cardiolite study at peak stress was obtained. Interpretation: Rest and stress SPECT Cardiolite nuclear imaging status post realignment, normalization, and attenuation correction demonstrate overall normal myocardial radioisotope uptake. Gated images reveal no significant regional wall motion abnormalities. The reported LVEF is greater than 70%. Impression: 1. There is no evidence of significant ischemia or infarction. 2. Estimated ejection fraction is greater than 70%. This note was generated with [employer] software. It may contain incorrect words, spelling, and punctuation that were not noted in checking the note before signing.
== END | disposition home or self-care (01) ==
LOC: CVS 06:23
PROVIDERS: PCP Internal Medicine; Referring Provider Internal Medicine; Visit Provider Internal Medicine
DX: Z01.818 Encounter for other preprocedural examination (principal); R06.09 Other forms of dyspnea
CPT/HCPCS: 78452; 93017; A9500; A4216; J2785

== ENCOUNTER → 2023-03-01 | Outpatient (CLI) | payer MEDICARE, SELFPAY ==
--- NOTE | 2023-03-01 09:39 | BI_ITS ---
MAMMOGRAPHY - BILATERAL SCREENING REASON FOR EXAM: Female, 67 years old. Routine annual screening examination. PERTINENT HISTORY: Non-contributory. TECHNIQUE: Digital bilateral breast lj (3D mammographic acquisition) in the CC and MLO projections. 2-D mediolateral oblique (MLO) and craniocaudad (CC) views of both breasts were obtained. CAD: Full Field Digital Mammography with Computer Added Detection was performed. COMPARISON: Comparison is made with prior study to February 25, 2022. FINDINGS: Breast Composition: There are scattered areas of fibroglandular density. There are no dominant masses or suspicious calcifications. Stable small benign-appearing bilateral axillary lymph nodes. No other significant abnormalities are identified. There has been no significant change since the prior study. BI/SCRN MAMM (CAD)W/LJ BILAT IMPRESSION: Stable bilateral screening mammogram. Yearly follow-up mammogram recommended. (A) ASSESSMENT CATEGORY: BIRADS Category 2: Benign. A letter regarding these results will be sent to the patient by the facility within 30 days. Approximately 10% of breast cancers are not detected by mammography. A normal mammogram should not delay biopsy of a clinically suspicious abnormality. [id number] Electronically Signed: César Sanchez MD at 11:10 EDT ,
== END | disposition home or self-care (01) ==
LOC: OPBI 09:39
PROVIDERS: PCP Internal Medicine; Referring Provider Obstetrics & Gynecology; Visit Provider Obstetrics & Gynecology
DX: Z12.31 Encounter for screening mammogram for malignant neoplasm of breast (principal)
CPT/HCPCS: 77063; 77067

== ENCOUNTER → 2023-09-20 | Outpatient (CLI) | payer MEDICARE, SELFPAY ==
[2023-09-20 15:57] LABS: Anion Gap 5 (5-15); BUN 21 mg/dL (7-18); BUN/Creat Ratio 22.8 RATIO (10-20); Calcium,Total 9.2 mg/dL (8.5-10.1); Chloride 104 mmol/L (98-107); Creatinine, Serum 0.92 mg/dL (0.55-1.02); EST Glomerular Filtration Rate 64 mL/min (>60); Est Glom Filt Rate - Afr Amer 77 mL/min (>60); Glucose 96 mg/dL (74-106); Sodium Level 139 mmol/L (136-145); Thyroid Stim Hormone (TSH) 0.85 uIU/mL (0.358-3.74)
[2023-09-22 14:09] LABS: Endomysial Antibody IgA Negative (Negative); Immunoglobulin A 105 mg/dL (87-352); t-Transglutaminase IgA <2 U/mL (0-3)
== END | disposition home or self-care (01) ==
LOC: BIMLAB 12:14
PROVIDERS: PCP Internal Medicine; Referring Provider Internal Medicine; Visit Provider Internal Medicine
DX: R10.33 Periumbilical pain (principal); R26.89 Other abnormalities of gait and mobility; I10 Essential (primary) hypertension
CPT/HCPCS: 36415; 80048; 82784; 83516; 84443; 86255

== ENCOUNTER → 2023-10-04 | Outpatient (CLI) | payer MEDICARE, SELFPAY ==
--- NOTE | 2023-10-04 06:53 | MRI_ITS ---
STUDY: MRI BRAIN WITH AND WITHOUT CONTRAST REASON FOR EXAM: Female, 68 years old. dizziness/balance problems TECHNIQUE: Standardized multiplanar fat and water weighted pulse sequences were obtained. IV 23 cc clariscan was administered for the contrast portion of the examination. COMPARISON: None. FINDINGS: Normal size of the ventricles and extra-axial spaces for the patient''s age. There are a limited number of small white matter hyperintensities, distributed throughout the deep white matter tracts of the cerebral hemispheres, consistent with mild chronic white matter ischemic changes. Normal T2* images of the brain without demonstrated susceptibility artifact. There is no demonstrated hemosiderin stain. There is no demonstrated hydrocephalus or midline shift. There are no abnormally enhancing lesions of the brain parenchyma. No abnormal thickening or enhancement meninges or dura. Normal bilateral basal ganglia. Normal thalami. There is no extra-axial fluid accumulation. Normal flow voids within the major intracranial circulation suggesting patency by spin echo criteria. Normal venous enhancement. There is no enhancing intra-axial or extra-axial abnormality. Normal sella turcica, pituitary gland, infundibular stalk, optic chiasm and hypothalamus. Normal tectal plate and pineal gland. Normal midbrain, haley and medulla. Normal cerebellum. Normal basal cisterns. Normal bilateral temporal bones. Normal bilateral internal auditory canals. No demonstrated orbital abnormality, within the constraints of a routine brain study. Normal visualized paranasal sinuses. Normal calvarium and skull base. Normal visualized soft tissue structures. Normal visualized upper cervical spine. MRI/Brain W/WO Contrast IMPRESSION: 1. Involutional changes of the brain, as described above. 2. No acute infarct or intracranial hemorrhage Electronically Signed: Matthew Montenegro MD at 13:37 EDT Reading Location ID and State: [facility] / [place] , Service support ,
== END | disposition home or self-care (01) ==
LOC: MRI 06:48
PROVIDERS: PCP Internal Medicine; Referring Provider Internal Medicine; Visit Provider Internal Medicine
DX: R42 Dizziness and giddiness (principal); R26.89 Other abnormalities of gait and mobility; M25.50 Pain in unspecified joint
CPT/HCPCS: 70553; A9575

== ENCOUNTER → 2024-02-22 | Outpatient (CLI) | payer MEDICARE, SELFPAY ==
[2024-02-22 10:32] LABS: Absolute Lymphocyte Count 1.72 X10^3/uL (0.83-4.51); Absolute Neutrophil Count 2.9 X10^3/uL (2.0-7.7); Basophil# 0.04 X10^3/uL; Basophil% 0.7 % (0-1); Eosinophil# 0.18 X10^3/uL; Eosinophils% 3.4 % (0-5); Hematocrit 42.3 % (37-47); Lymphocyte # 1.72 X10^3/ul (0.83-4.51); Lymphocyte % 32.2 % (19-41); Mean Corp Hgb Conc 33.1 g/dL (32-36); Mean Corpuscular Hgb 28.7 pg (27.0-32.0); Mean Corpuscular Volume 86.9 fL (81-99); Mean Platelet Vol. 9.5 fl (6.2-12.0); Monocyte# 0.45 X10^3/uL; Monocyte% 8.4 % (0-10); NRBC Flagged by Analyzer 0 % (0-5); Neutrophil # 2.93 X10^3/uL (2.7-7.7); Neutrophil % 54.9 % (47-70); Platelet Count 220 K/mm3 (150-450); RBC Distribution Width CV 13.7 % (11.6-14.6); RBC Distribution Width SD 43.8 fl (35.1-43.9); Red Blood Count 4.87 M/mm3 (4.2-5.4); White Blood Count 5.3 K/mm3 (4.4-11.0)
[2024-02-22 10:55] LABS: Anion Gap 7 (5-15); BUN 23 mg/dL (7-18); BUN/Creat Ratio 22.8 RATIO (10-20); Calcium,Total 9.5 mg/dL (8.5-10.1); Chloride 108 mmol/L (98-107); Creatinine, Serum 1.01 mg/dL (0.55-1.02); EST Glomerular Filtration Rate 57 mL/min (>60); Est Glom Filt Rate - Afr Amer 70 mL/min (>60); Glucose 113 mg/dL (74-106); Potassium 3.7 mmol/L (3.5-5.1); Sodium Level 139 mmol/L (136-145)
--- NOTE | 2024-02-22 19:06 | PCM.TILTTABL ---
Staff Staff: Aubrie Hitchcock and Fiona Ovalles Summary Pre Test Resting HR: 72 Pre Test Resting BP: 132/87 Minimum Test HR: 75 Maximum Test HR: 84 Minimum Test BP: 121/83 Maximum Test BP: 145/86 Physician Tilt Table Report Patient's Physicians Primary Care Physician: Elicia Rojas Human Services Instructor: Kit Kuhn Indications/Diagnosis: Syncope. Procedure Comments: Patient was brought to the noninvasive lab in the postabsorptive nonsedated state. Informed consent was obtained. Resting EKG was obtained demonstrating a heart rate of 72 bpm and a blood pressure 132/87 mmHg. The patient was then placed in the 70 degree head upright tilt position. Continuous EKG monitoring as well as blood pressure monitoring were obtained. Symptoms were also noted. The patient had no major complaints throughout the 30-minute head upright tilt test. Blood pressures were normal and heart rate was noted to be normal with no symptomatology. After appropriate period of time the patient was put back in the recumbent position and blood pressure and heart rate were obtained. Summary: Normal head upright tilt table test with no significant hemodynamic changes.
[2024-02-22 19:09] VITALS: BP 121/83; BP 132/87; BP 145/86
== END | disposition home or self-care (01) ==
PROVIDERS: Nurse Practitioner; PCP Internal Medicine; Referring Provider Internal Medicine; Visit Provider Internal Medicine
DX: R42 Dizziness and giddiness (principal); I10 Essential (primary) hypertension
CPT/HCPCS: 36415; 80048; 85025; 93660; J7040; A4216

== ENCOUNTER → 2024-04-05 | Outpatient (CLI) | payer MEDICARE, SELFPAY ==
[2024-04-05 11:40] LABS: Bacteria 0 SEEN /hpf (None Seen); Mucous, Urine 0 SEEN /hpf (<or=2+); Red Blood Cells-Urine 0 SEEN /hpf (0-5); White Blood Cells 0 SEEN /hpf (0-5)
[2024-04-05 13:41] LABS: Color, Urine Yellow (Yellow); Glucose, Dipstick Normal (Normal); Ketone-Dipstick Negative (Negative); Leukocyte Esterase-Dipstick Negative /ul (Negative); Nitrite-Dipstick Negative (Negative); Occult Blood-Urine 25 /ul (Negative); Protein-Dipstick 15 mg/dl (Negative); Urine Bilirubin Dipstick Negative (Negative); Urine Clarity Clear (Clear); Urine Urobilinogen Normal (Normal); Urine pH 6.5 (5.0 - 8.0)
[2024-04-05 13:53] LABS: Squamous Epithelial Cells - UA 0-5 SEEN /hpf (5-10)
[2024-04-05 13:54] LABS: Renal Epithelial Cells 0 SEEN /hpf (0-5)
[2024-04-05 15:47] LABS: Cholesterol 168 mg/dL (200); High Density Lipoprotein 54 mg/dL; Thyroid Stim Hormone (TSH) 0.523 uIU/mL (0.358-3.740); Triglycerides 209 mg/dL; Very Low Density Lipoprotein 42 mg/dL (5-40)
[2024-04-06 02:04] LABS: Vitamin D,25 Hydroxy 30.1 ng/mL
== END | disposition home or self-care (01) ==
LOC: BIMLAB 11:25
PROVIDERS: PCP Internal Medicine; Referring Provider Internal Medicine; Visit Provider Internal Medicine
DX: E03.9 Hypothyroidism, unspecified (principal); E55.9 Vitamin D deficiency, unspecified; R39.89 Other symptoms and signs involving the genitourinary system
CPT/HCPCS: 36415; 80061; 81001; 82306; 84443

== ENCOUNTER → 2024-04-20 | Outpatient (CLI) | payer MEDICARE, SELFPAY | END | disposition home or self-care (01) | PROVIDERS: PCP Internal Medicine; Referring Provider Obstetrics & Gynecology; Visit Provider Obstetrics & Gynecology | DX: Z12.31 Encounter for screening mammogram for malignant neoplasm of breast (principal) | CPT/HCPCS: 77063; 77067 ==

== ENCOUNTER → 2024-04-24 | Outpatient (CLI) | payer MEDICARE, SELFPAY | END | disposition home or self-care (01) | LOC: CVS 13:54 | PROVIDERS: PCP Internal Medicine; Referring Provider Internal Medicine; Visit Provider Internal Medicine | DX: R55 Syncope and collapse (principal) | CPT/HCPCS: 93306; Q9957; A4216; C8929 ==

== ENCOUNTER → 2024-06-19 | Outpatient (CLI) | payer MEDICARE, SELFPAY ==
--- NOTE | 2024-06-19 12:37 | RAD_ITS ---
STUDY: X-RAY - LUMBAR SPINE REASON FOR EXAM: Female, 69 years old. chronic back pain TECHNIQUE: [3] view(s) of the lumbar spine were obtained. COMPARISON: None FINDINGS: Normal lumbar lordosis. There is no substantial scoliosis. There is 4 mm anterolisthesis of L4 on L5, otherwise normal alignment of the vertebrae. There is diffuse demineralization with mild degenerative multi-level endplate spondylosis. There is mild multi-level degenerative disc disease with multi-level disc space narrowing. The soft tissue structures are unremarkable. RAD/Lumbar Spine 2 or 3 Views IMPRESSION: No acute abnormality. Mild multilevel degenerative changes. Electronically Signed: Mekhi Hope MD at 15:35 EST ,
== END | disposition home or self-care (01) ==
LOC: MTRAD 12:36
PROVIDERS: PCP Internal Medicine; Referring Provider Internal Medicine; Visit Provider Internal Medicine
DX: M54.50 Low back pain, unspecified (principal); G89.29 Other chronic pain
CPT/HCPCS: 72100

== ENCOUNTER 2024-10-03 11:30 | Outpatient (RCR) | payer MEDICARE, SELFPAY ==
--- NOTE | 2024-05-26 13:31 | HP.PTEVAL_ITS ---
Patient's Visit Information Visit Information Visit Information: LANI SHAH is a 69 year old F referred to Physical Therapy by Dr. Elicia Rojas MD with a diagnosis of Chronic LBP w/o sciatica. Date of Evaluation: 05/26/24 Physical Therapist: TRACEY Mcgarry Visit Plan Frequency: 2x /Week Duration: 2 Months Plan: 2X/ week for 8 weeks for AT for core stability, LE strength, endurance, ba [place] with HEP. May try some visits on land to learn more independent home based program HEP: Bridge, LTR, PT Subjective Subjective: Pt has back pain that she has put up for over a year. She thought it was something that would go away. It has not. She can not walk for length of time. She finds seats where ever she can. She is going on a cruise in December and wants to be able to walk. Dr Rojas has put in for an x-ray. She has some thigh pain and just a deep ache when she touches it. She broke her L foot in 2003 and the foot is always an issue and pain along the outside of L morrison. She can sit for as long as she wants to. She does tend to lean over on the cart. Stairs: can do them with a railing and can do it without pulling on her arms and her legs do feel weaker than they used to. Back pain does not wake her up. Sit to stand: she is able to without using her arms. She has occ N&T down her L legs. L THR was done a year ago in Jan. Pain back pain: Pain Intensity (Out of 10): 0 Comment: with walking 6 Objective Objective: Gait: walks with decrease stance time on the L LE (L THR) Walking with horizontal head turns slowly increased some dizziness in the patie nt LE MMT: R hip flex 12.2 and L 10.2 R knee ext 24.4 and L 18.5 R knee flex 11 and L 13 Trunk AROM: 50% (increase LOB coming back up erect), ext 25%, SB B 50%, ROt B 50% Pt is able to heel and toe raise with 1 hand on the rail for balance Pt is able to bridge with a little tightness on the L anterior hip but no pain Slight pain in the R hip with LTR to the L Balance/Special Test Scores Oswestry Low Back Score: 19 Goals Goal 1:: I HEP Goal Time Frame: 8-12 Weeks Goal 2:: Be able to walk longer distance than current distance that causes her back pain with no pain Goal Time Frame: 8-12 Weeks Goal 3:: Be able to go up and down the stairs recip with no signs of weakness Goal Time Frame: 8-12 Weeks Goal 4:: Decrease back pain by 50% Goal Time Frame: 8-12 Weeks Rehabilitation Potential Rehabilitation Potential: Good Anticipated Interventions Patient/Client Instruction: Educate patient on: Condition and Plan of Care For the Purpose of:: To decrease pain, To increase ROM, To improve nutrient delivery to tissue, To improve muscle performance and motor function, To improve ability to perform ADL's, To increase tolerance to activity/condition/position, To improve performance and independence with ADL's, To decrease level of supervision to perform tasks, To improve ability of physical actions for home/community/work/leisure, To improve gait and locomotor functions, To improve health of tissue, To decrease soft tissue restriction, To increase flexibility/ROM, To improve endurance and To improve balance Therapeutic Exercise to Include: Strength training, Endurance training, Balance training, Postural training, Flexibilty training, Gait and locomotor training, In an aquatic setting, Active ROM and Dynamic Lumbar Stabilization For the Purpose of:: To decrease pain, To increase ROM, To improve nutrient delivery to tissue, To improve muscle performance and motor function, To improve ability to perform ADL's, To increase tolerance to activity/condition/position, To improve performance and independence with ADL's, To decrease level of supervision to perform tasks, To improve ability of physical actions for home/community/work/leisure, To improve gait and locomotor functions, To improve health of tissue, To decrease soft tissue restriction, To increase flexibility/ROM, To improve endurance and To improve balance Text: Thank you for the opportunity to evaluate your patient. For Medicare and Medicare HMO plans, please review the plan of care and approve it. It will need to be FAXED BACK to us at [phone] for Medicare purposes. For Medicare only, by signing this I certify the plan of care. Please let me know if there are questions or concerns regarding this plan of care. Physician Signature: Date:
--- NOTE | 2024-06-28 12:35 | HP.PTREVAL ---
Re-Evaluation Intro: Dr. Elicia Rojas MD, It has been my pleasure to treat LANI SHAH over the last 10 visits for Chronic LBP w/o sciatica. Please see the progress note below for an update on the physical therapy plan of care! Subjective Subjective: She loves the pool. Her pain in her back is still there. She was standing for a long time on Wednesday getting dinner and she was almost in tears. She feels that the distance between her flare ups. She feels better in the water and feels that she has more room for improvement. Objective Objective/Function: Discussed ways to bring the dishes up to her closer in the sink as that bothers her back and ways to do things in steps to not do everything all at once and make her back flare up. Discussed her progress and how she is carrying things that she learns to her ADL's (like pulling in her stomach etc). Also discussed that when doing things in front of her to have the objects closer to her. Stairs: Up and down recip with 1 hand rail with good flow ascending the steps and slight decrease flow descending the steps Plan Plan Plan: 2X/ week for 8 weeks for AT for core stability, LE strength, endurance, balance with HEP. May try some visits on land to learn more independent home based program Balance/Gait/Functional tests Balance/Special Test Scores Oswestry Low Back Score: 19 Goals Goals Goal 1:: I HEP Goal Time Frame: 8-12 Weeks Goal 2:: Be able to walk longer distance than current distance that causes her back pain with no pain Goal Time Frame: 8-12 Weeks Goal Progress: Not Progressing Goal 3:: Be able to go up and down the stairs recip with no signs of weakness Goal Time Frame: 8-12 Weeks Goal Progress: Progressing Goal 4:: Decrease back pain by 50% Goal Time Frame: 8-12 Weeks Goal Progress: Progressing Goal 5:: Be able to do dishes without having to lean on the sink and 50% less pain while doing them. Goal Time Frame: 4-6 Weeks Anticipated Interventions Anticipated Interventions Patient/Client Instruction: Educate patient on: Condition and Plan of Care For the Purpose of:: To decrease pain, To increase ROM, To improve nutrient delivery to tissue, To improve muscle performance and motor function, To improve ability to perform ADL's, To increase tolerance to activity/condition/position, To improve performance and independence with ADL's, To decrease level of supervision to perform tasks, To improve ability of physical actions for home/community/work/leisure, To improve gait and locomotor functions, To improve health of tissue, To decrease soft tissue restriction, To increase flexibility/ROM, To improve endurance and To improve balance Therapeutic Exercise to Include: Strength training, Endurance training, Balance training, Postural training, Flexibilty training, Gait and locomotor training, In an aquatic setting, Active ROM and Dynamic Lumbar Stabilization For the Purpose of:: To decrease pain, To increase ROM, To improve nutrient delivery to tissue, To improve muscle performance and motor function, To improve ability to perform ADL's, To increase tolerance to activity/condition/position, To improve performance and independence with ADL's, To decrease level of supervision to perform tasks, To improve ability of physical actions for home/community/work/leisure, To improve gait and locomotor functions, To improve health of tissue, To decrease soft tissue restriction, To increase flexibility/ROM, To improve endurance and To improve balance Re-Evaluation Ending Re-evaluation ending: Please do not hesitate to contact me at [phone] by phone or if you have questions or concerns regarding this new plan of care! Sincerely, TRACEY Mcgarry
--- NOTE | 2024-08-07 09:27 | HP.PTREVAL_ITS ---
Re-Evaluation Intro: Dr. Elicia Rojas MD, It has been my pleasure to treat LANI SHAH over the last 29 visits for Chronic LBP w/o sciatica. Please see the progress note below for an update on the physical therapy plan of care! Subjective Subjective: Pt. reports overall doing well. Pt. has have some pain still. Pt. reports 2/10 pain in L/S. No radicular symptoms. Pt. reports being 50% better overall. Objective Objective/Function: ROM: LUMBAR SPINE: flexion min/nil loss NE, ext mod loss mild increase NW, SB min loss bilat NE, rotation min loss bilat mild increase NE. MMT: Core strength: poor+. B hip flexion 4/5, abd 4/5, ext 4/5. GAIT: pt. ambulates with decent pattern, but does have a slight flexed posture. She does fatigue rapidly with reports back fatigue. STAIRS: step to pattern with use of BHR. Pt. had increased effort to push up with RLE. Plan Plan Plan: I am extending her POC x2 a week for 4 weeks. Progressing core s trengthening and BLE strengthening. Start with mat neutral spine progressing to dynamic strengthening. I would her to be able to walk longer with decreased LBP. Balance/Gait/Functional tests Balance/Special Test Scores Oswestry Low Back Score: 12 Goals Goals Goal 1:: I HEP Goal Time Frame: 8-12 Weeks Goal Progress: Progressing Goal 2:: Be able to walk longer distance than current distance that causes her back pain with no pain Goal Time Frame: 8-12 Weeks Goal Progress: Progressing Goal 3:: Be able to go up and down the stairs recip with no signs of weakness Goal Time Frame: 8-12 Weeks Goal Progress: Progressing Goal 4:: Decrease back pain by 50% Goal Time Frame: 8-12 Weeks Goal Progress: Progressing Goal 5:: Be able to do dishes without having to lean on the sink and 50% less pain while doing them. Goal Time Frame: 4-6 Weeks Goal Progress: Progressing Goal 6:: LTG: Pt. to have increased core strength to fair+. Goal Time Frame: 4-6 Weeks Goal Progress: Progressing Anticipated Interventions Anticipated Interventions Patient/Client Instruction: Educate patient on: Condition and Plan of Care For the Purpose of:: To decrease pain, To increase ROM, To improve nutrient delivery to tissue, To improve muscle performance and motor function, To improve ability to perform ADL's, To increase tolerance to activity/condition/position, To improve performance and independence with ADL's, To decrease level of supervision to perform tasks, To improve ability of physical actions for home/community/work/leisure, To improve gait and locomotor functions, To improve health of tissue, To decrease soft tissue restriction, To increase flexibility/ROM, To improve endurance and To improve balance Therapeutic Exercise to Include: Strength training, Endurance training, Balance training, Postural training, Flexibilty training, Gait and locomotor training, In an aquatic setting, Active ROM and Dynamic Lumbar Stabilization For the Purpose of:: To decrease pain, To increase ROM, To improve nutrient delivery to tissue, To improve muscle performance and motor function, To improve ability to perform ADL's, To increase tolerance to activity/condition/position, To improve performance and independence with ADL's, To decrease level of supervision to perform tasks, To improve ability of physical actions for home/community/work/leisure, To improve gait and locomotor functions, To improve health of tissue, To decrease soft tissue restriction, To increase flexibility/ROM, To improve endurance and To improve balance Re-Evaluation Ending Re-evaluation ending: Please do not hesitate to contact me at [phone] by phone or Fax: if you have questions or concerns regarding this new plan of care! Sincerely, Nino Gonzalez DPT
--- NOTE | 2024-10-03 12:27 | HP.PTDCSUM_ITS ---
Discharge Summary D/C summary: It has been my pleasure to treat LANI SHAH referred by Dr. 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 Discharge Date: 10/03/24 Please see the following information for a summary of their discharge status. Subjective Subjective: Pt feels good but when she does anything the pain all comes back. She is good in the morning but by late afternoon her pain is back. She has more strength and more endurance. She is just not sure why her back pain won't quit. She does not have an appt with Dr May. She has pain with cooking and sewing. She feels comfortable doing exercises on her own and she has a membership to [employer]. She still has to lean onto the sink while doing the dishes. Pain back pain: Pain Intensity (Out of 10): 3 BLE: Pain Intensity (Out of 10): 0 MID Back: Pain Intensity (Out of 10): 0 Overall Improvement % Improvement: 80 Objective Objective/Function: Stairs: up and down recip with 1 hand rail with ease. Pt is indep with HEP Goals Goal 1:: I HEP Goal Progress: Goal Met Goal 2:: Be able to walk longer distance than current distance that causes her back pain with no pain Goal Progress: Goal Met Goal 3:: Be able to go up and down the stairs recip with no signs of weakness Goal Progress: Goal Met Goal 4:: Decrease back pain by 50% Goal Progress: Goal Met Goal 5:: Be able to do dishes without having to lean on the sink and 50% less pain while doing them. Goal Progress: Progressing Goal 6:: LTG: Pt. to have increased core strength to fair+. Goal Progress: Progressing Plan Plan: DC PT to HEP D/C Information Discharge Comments: DC PT to HEP d/c sentence: If there are questions or concerns regarding this patient's physical therapy, please feel free to call me at [phone]. Thank you for the referral of this patient. Sincerely, Keisha Kelly, MPT Balance/Gait/Functional tests Balance/Special Test Scores Oswestry Low Back Score: 14 Improvement % Improvement: 80
== END 2024-10-03 19:00 | disposition home or self-care (01) ==
LOC: PT 11:30
PROVIDERS: PCP Internal Medicine; Referring Provider Internal Medicine; Visit Provider Internal Medicine
DX: G89.29 Other chronic pain (principal); M54.50 Low back pain, unspecified
CPT/HCPCS: 97110; 97113; 97162; 97530

== ENCOUNTER → 2025-02-06 | Outpatient (CLI) | payer MEDICARE, SELFPAY ==
[2025-02-06 15:11] LABS: Hematocrit 41.1 % (37-47); Hemoglobin 14.0 g/dL (12.0-15.0); Immature Granulocytes Count 0.010 X10^3/uL (0.0-0.0); Mean Corp Hgb Conc 34.1 g/dL (32-36); Mean Corpuscular Volume 89.5 fL (81-99); Mean Platelet Vol. 10.1 fl (6.2-12.0); NRBC Flagged by Analyzer 0 % (0-5); Platelet Count 241 K/mm3 (150-450); RBC Distribution Width CV 12.7 % (11.6-14.6); RBC Distribution Width SD 41.3 fl (35.1-43.9); Red Blood Count 4.59 M/mm3 (4.2-5.4); White Blood Count 5.8 K/mm3 (4.4-11.0)
[2025-02-06 15:49] LABS: AST(SGOT) 22 U/L (<=31); Alanine Aminotransfer ALT/SGPT 17 U/L (<=34); Albumin, Serum 4.4 g/dL (3.4-4.8); Alkaline Phosphatase 79 U/L (35-104); Anion Gap 13 (5-15); BUN 15 mg/dL (4-19); BUN/Creat Ratio 14.2 RATIO (10-20); Calcium,Total 9.7 mg/dL (7.6-11.0); Carbon Dioxide 25.2 mmol/L (21.0-32.0); Chloride 102 mmol/L (98-108); Cholesterol 163 mg/dL (<=200); Globulin 2.7 g/dL (2.2-4.2); Glucose 91 mg/dL (70-99); Low Density Lipoprotein Calc. 70 mg/dL; Potassium 4.0 mmol/L (3.3-5.1); Triglycerides 221 mg/dL; Very Low Density Lipoprotein 44 mg/dL (5-40); Vitamin D,25 Hydroxy 33.5 ng/mL (30-100); cholesterol:hdl ratio screen 3.37
== END | disposition home or self-care (01) ==
LOC: BIMLAB 12:30
PROVIDERS: PCP Internal Medicine; Visit Provider Internal Medicine
DX: M85.80 Other specified disorders of bone density and structure, unspecified site (principal); I10 Essential (primary) hypertension; E78.00 Pure hypercholesterolemia, unspecified
CPT/HCPCS: 36415; 80053; 80061; 82306; 85025

== ENCOUNTER → 2025-05-09 | Outpatient (CLI) | payer MEDICARE, SELFPAY ==
--- NOTE | 2025-05-09 15:15 | BI_ITS ---
EXAM: SCRN MAMM (CAD)W/LJ BILAT DATE: 05/09/2025 CLINICAL HISTORY: F, Age 70 y/o , SCREENING TECHNIQUE: Procedure Code: [id number] Modality: MG Procedure: SCRN MAMM (CAD)W/LJ BILAT COMPARISON: Prior exam(s) dated 04/20/2024, 03/01/2023, 02/25/2022. FINDINGS: TISSUE DENSITY: There are scattered areas of fibroglandular density. Bilateral Breast Mammographic Findings: No significant masses, calcifications or other abnormalities are identified. Benign-appearing round microcalcifications are seen in both breasts. BI/SCRN MAMM (CAD)W/LJ BILAT IMPRESSION: Benign screening mammogram OVERALL FINAL ASSESSMENT BI-RADS 2: BENIGN RECOMMENDATION: Routine annual follow-up in 1 Year Additional Recommendation none A letter with findings and recommendations will be mailed to the patient. Reading Location: [id number]
== END | disposition home or self-care (01) ==
LOC: OPBI 15:17
PROVIDERS: PCP Internal Medicine; Referring Provider Internal Medicine; Visit Provider Internal Medicine
DX: Z12.31 Encounter for screening mammogram for malignant neoplasm of breast (principal)
CPT/HCPCS: 77063; 77067